=== PATIENT | female | born 1935 | race Asian ===

== ENCOUNTER 2016-12-06 15:50 | Emergency (ER) | payer MEDICARE ==
[~2016-12-06] VITALS: Ht 157.5 cm; Wt 58.2 kg
[2016-12-06 17:55] VITALS: BP 150/92
== END 2016-12-06 18:43 | disposition home or self-care (01) ==
LOC: EMS 15:55
DX: S52.531A Colles' fracture of right radius, initial encounter for closed fracture (principal); V09.9XXA Pedestrian injured in unspecified transport accident, initial encounter; Y93.89 Activity, other specified; Y92.89 Other specified places as the place of occurrence of the external cause; Y99.8 Other external cause status
CPT/HCPCS: 99284